=== PATIENT | female | born 2000 | race Caucasian/White ===

== ENCOUNTER 2023-03-02 14:59 | Outpatient (REF) | payer OTHER, SELFPAY ==
--- NOTE | ~2023-03-02 | MR_ITS ---
EXAMINATION: MR KNEE WITHOUT CONTRAST, LEFT CLINICAL INFORMATION: Left knee pain COMPARISON: None available. TECHNIQUE: MRI of the knee without contrast was performed using routine sequences on a high-field scanner. FINDINGS: MENISCI: Medial Meniscus: Intact Lateral Meniscus: Intact LIGAMENTS: Cruciate: Intact Collateral: Intact. There is edema and trace fluid between the iliotibial band and the lateral femoral condyle. Clinically correlate for evidence of iliotibial band friction syndrome. EXTENSOR MECHANISM: Intact ARTICULAR CARTILAGE/BONE: Patellofemoral Compartment: Normal Medial Compartment: Normal Lateral Compartment: Normal JOINT FLUID AND BURSAE: No joint effusion. MR/MR knee LT wo con IMPRESSION: 1. No meniscal tear. 2. Edema and trace fluid between the iliotibial band and lateral femoral condyle. Clinically correlate for evidence of iliotibial band friction syndrome.
== END 2023-03-02 15:00 | disposition home or self-care (01) ==
LOC: HO.MRI 14:59
PROVIDERS: Visit Provider Family Medicine Sports Medicine
DX: M25.562 Pain in left knee (principal)
CPT/HCPCS: 73721